=== PATIENT | male | born 1950 | race Caucasian/White ===

== ENCOUNTER 2021-08-21 07:09 | Emergency (ER) | payer OTHER ==
[~2021-08-21] VITALS: Ht 182.9 cm; Wt 81.8 kg
--- NOTE | 2021-08-21 07:56 | NUR ---
TC FROM PATIENT' S EX , KATHY FUNES. PHONE NUMBER:[phone]. KATHY FUNES IS IN [place], [place] AND CLOSEST RADIOISOTOPE TECHNOLOGIST FOR PATIENT. KATHY STATES THAT THE PATIENT HAS A BROTHER IN THE [place], OR AREA, BUT HE IS NOT CLOSE WITH HIM.
[2021-08-21 09:19] LABS: BASOPHILS # (AUTO) 0.1 X10'3 (0-0.2); BASOPHILS % (AUTO) 1.2 % (0-1); EOSINOPHILS % (AUTO) 0.5 % (0-6); HEMATOCRIT 41.8 % (42.0-52.0); HEMOGLOBIN 14.3 g/dl (14.0-17.9); LYMPHOCYTES # (AUTO) 0.9 X10'3 (1.1-4.8); LYMPHOCYTES % (AUTO) 17.3 % (21-51); MEAN CORPUSCULAR HEMOGLOBIN 33.7 PG (27.0-31.0); MEAN CORPUSCULAR HGB CONC 34.1 g/dL (33.0-36.5); MEAN CORPUSCULAR VOLUME 98.6 FL (78-98); MEAN PLATELET VOLUME 6.3 FL (7.4-10.4); MONOCYTES # (AUTO) 0.6 X10'3 (0-0.9); MONOCYTES % (AUTO) 10.7 % (2-12); NEUTROPHILS # (AUTO) 3.7 X10'3 (1.8-7.7); NEUTROPHILS % (AUTO) 70.3 % (42-75); PLATELET COUNT 322 X10'3 (140-440); RED BLOOD COUNT 4.24 X10'6 (4.70-6.10); RED CELL DISTRIBUTION WIDTH 13.3 % (11.5-14.5); WHITE BLOOD COUNT 5.3 X10'3 (4.5-11.0)
[2021-08-21 09:32] LABS: ALANINE AMINOTRANSFERASE 23 U/L (12-78); ALBUMIN 3.7 G/DL (3.4-5.0); ALBUMIN/GLOBULIN RATIO 1.1 (1.1-1.5); ALKALINE PHOSPHATASE 43 IU/L (46-116); ASPARTATE AMINO TRANSFERASE 21 U/L (10-37); BILIRUBIN,TOTAL 0.8 MG/DL (0.1-1.0); BLOOD UREA NITROGEN 9 MG/DL (7-18); BUN/CREATININE RATIO 13.8 (5.4-32.0); CALCIUM 8.8 MG/DL (8.5-10.1); CHLORIDE 96 MMOL/L (99-107); CREATININE 0.65 MG/DL (0.60-1.10); GLUCOSE 103 MG/DL (70-104); POTASSIUM 3.7 MMOL/L (3.5-5.1); SODIUM 133 MMOL/L (135-145); TOTAL PROTEIN 7.1 G/DL (6.4-8.2); eGFR > 90 ML/MIN
[2021-08-21 09:33] LABS: ANION GAP 11 (8-16); TOTAL CARBON DIOXIDE 26.1 MMOL/L (24-32)
[2021-08-21 09:48] LABS: ETHANOL < 0.010 GM/DL (0.0-0.010)
--- NOTE | 2021-08-21 10:03 | NUR ---
TC FROM KATHY FUNES (EX-), WHO STATES THAT HER SON WOULD BE WILLING TO TRAVEL HERE TO [place] DISPATCHER THE PATIENT WHEN HE IS DISCHARGED. KATHY INFORMED THAT A MENTAL HEALTH EVALUATION WILL BE DONE ON THE PATIENT, ONCE HE IS MEDICALLY CLEARED. KATHY IS WILLING TO SPEAK WITH MENTAL HEALTH, TO COME UP WITH A SAFE PLAN FOR THE PATIENT.
[2021-08-21 10:22] LABS: CLARITY,URINE CLEAR (Clear); COLOR,URINE YELLOW (Yellow); GLUCOSE, URINE NEGATIVE (Neg); KETONES,URINE 15 mg/dl (Neg); LEUKOCYTE ESTERASE ,URINE NEGATIVE (Neg); NITRITES, URINE NEGATIVE (Neg); OCCULT BLOOD,URINE NEGATIVE (Neg); PROTEIN,URINE NEGATIVE (Neg)
[2021-08-21 10:23] LABS: UA COLLECTION TYPE VOIDED
[2021-08-21 10:25] LABS: URINE AMPHETAMINE SCREEN NEGATIVE (Neg); URINE BARBITUATE SCREEN NEGATIVE (Neg); URINE BENZODIAZEPINES SCREEN NEGATIVE (Neg); URINE CANNABINOID SCREEN NEGATIVE (Neg); URINE COCAINE SCREEN NEGATIVE (Neg); URINE METHADONE SCREEN NEGATIVE (Neg); URINE OPIATE SCREEN NEGATIVE (Neg); URINE PHENCYCLIDINE SCREEN NEGATIVE (Neg)
--- NOTE | 2021-08-21 10:55 | NUR ---
SPOKE WITH KATHY, SON-IN-LAW [place] RUY FROM [place], . WILL BE ABLE TO FLY UP HERE AND TAKE PT HOME.
--- NOTE | 2021-08-21 14:23 | NUR ---
MENTAL HEALTH SOCAL WORKER IN TALKING TO PT
--- NOTE | 2021-08-21 16:12 | NUR ---
SPOKE WITH TAMMY CHAUHANBUSINESS OFFICE REPRESENTATIVE THAT CONFIRMED [facility] IS NOT AVAILABLE TO ASSIST WITH SAFE DC UNTIL TOMORROW AND IS TO REMAIN IN ED UNTIL [facility] CAN BE CONSULTED. PER LEE WITH [facility] PATIENT IS NO LONGER ON A HOLD AND HE SPOKE WITH SON IN LAW THAT CAN COME PICK HIM UP FROM [place] BUT IT WILL TAKE A COUPLE OF DAYS TO ARRANGE TRANSPORTATION.
--- NOTE | 2021-08-21 20:51 | NUR ---
The patient moved to bed 23 in the ER. He was confused and disoriented. He was able to accurately state the month and year but not where he was at or how he came to be here. He denies medical problems but he is a very poor historian. He ambulates well. He was made aware that his family would be coming to pick him up but that he would have to stay here until he came for him and the patient was agreeable to that plan
--- NOTE | 2021-08-21 23:03 | NUR ---
The patient appears to be sleeping
--- NOTE | 2021-08-22 00:02 | NUR ---
The patient appears to be sleeping
--- NOTE | 2021-08-22 01:03 | NUR ---
The patient up briefly to use the bathroom and is currently resting on his bed but awake
--- NOTE | 2021-08-22 01:59 | NUR ---
The patient appears to be sleeping
--- NOTE | 2021-08-22 03:08 | NUR ---
The patient appears to be sleeping
--- NOTE | 2021-08-22 04:10 | NUR ---
The patient up to use the bathroom
--- NOTE | 2021-08-22 05:36 | NUR ---
The patient appeared to have slept well during the night
--- NOTE | 2021-08-22 06:24 | NUR ---
Note katie in ED - 08/22/21 at 0626 by CARLINE Patient up and went to BR. Patient in no apparent distress. Patient is now back in bed. Continue to monitor.
--- NOTE | 2021-08-22 06:26 | NUR ---
Patient sleeping on left side and is re-adjusting a bit. No distress observed. Continue to monitor.
--- NOTE | 2021-08-22 08:11 | NUR ---
Patient eating breakfast. No distress observed. Continue to monitor.
--- NOTE | 2021-08-22 08:38 | NUR ---
Patient sitting up in bed. No distress observed. Continue to monitor.
--- NOTE | 2021-08-22 09:23 | NUR ---
Patient reading magazines. No distress observed. Continue to monitor.
--- NOTE | 2021-08-22 10:29 | NUR ---
Carolyn, Antiquer, speaking with patient.
--- NOTE | 2021-08-22 12:10 | NUR ---
Patient eating lunch. No distress observed. Continue to monitor.
--- NOTE | 2021-08-22 13:03 | NUR ---
Patient watching T.V. No distress observed. Continue to monitor.
--- NOTE | 2021-08-22 14:49 | NUR ---
Patient's son-in-law is flying into [place] tomorrow at 1511. Patient will be picked up around 1600.
--- NOTE | 2021-08-22 16:51 | NUR ---
Patient reclining and watching T.V. in bed. No distress observed. Continue to monitor.
--- NOTE | 2021-08-22 18:32 | NUR ---
Pt resting in bed sitting comfortably watching tv. Pt states he isnt sure how he got here and is confused about what day it is, but knows his son is going to come tommorow. Pt up to use the restroom and returned to bed.
--- NOTE | 2021-08-22 20:49 | NUR ---
pt up to use the toilet and returned to bed. Pt in bed resting comfortably.
--- NOTE | 2021-08-22 22:44 | NUR ---
Pt up to the desk asking a "Mr. Avina" has arrived. Explained to patient that his family would be here tommorow and suggested he rest. Pt returned to bed.
--- NOTE | 2021-08-23 02:06 | NUR ---
Pt laying in bed sleeping rr even and unlabored.
--- NOTE | 2021-08-23 04:27 | NUR ---
Pt is laying on his right side asleep rr even and unlabored.
--- NOTE | 2021-08-23 05:21 | NUR ---
pt up to use the restroom, pt asked if today is Sunday. Pt oriented to correct time and date. Pt states "Wow am I really messed up." pt returned to bed.
[2021-08-23 05:54] VITALS: BP 129/82
--- NOTE | 2021-08-23 07:02 | NUR ---
Pt lying in bed with eyes closed, no distress or restless movements noted.
--- NOTE | 2021-08-23 08:02 | NUR ---
Patient endorses concern that he has not had a bowel movement since his arrival despite multiple meals. He denies history of constipation. Patient denies any abdominal pain, but states he has not been passing much gas. Will inform Dr. Gates.
--- NOTE | 2021-08-23 09:00 | NUR ---
Patient had a bowel movement, he reports it was hard.
--- NOTE | 2021-08-23 10:56 | NUR ---
Patient gave himself a sponge bath. No acute distress. Patient is pleasant and evidently excited to be getting discharged today.
--- NOTE | 2021-08-23 11:10 | NUR ---
Pt resting comfortably, respirations even and unlabored.
--- NOTE | 2021-08-23 13:07 | NUR ---
Pt lying in bed awake, no distress noted.
--- NOTE | 2021-08-23 15:04 | NUR ---
Patient ambulated to bathroom. Gait steady.
--- NOTE | 2021-08-23 17:10 | NUR ---
DISCHARGE NOTE: Patient was discharged from unit 1620. Pt left with all personal belongings. Pt's friend from [place], [place] flew down to pick pt up. Pt was A&O and eager to leave. A taxi was called to transport pt to [facility] in [place] to poultry picker his vehicle.
== END 2021-08-23 16:20 | disposition home or self-care (01) ==
LOC: ER 07:10
DX: R41.0 Disorientation, unspecified (principal); Z20.822 Contact with and (suspected) exposure to COVID-19; F03.90 Unspecified dementia, unspecified severity, without behavioral disturbance, psychotic disturbance, mood disturbance, and anxiety; Z88.2 Allergy status to sulfonamides
CPT/HCPCS: 36415; 70450; 71045; 80053; 80305; 80320; 81003; 84443; 84484; 85025; 87635; 99285; C9803; 93005